=== PATIENT | female | born 1955 | race Caucasian/White ===

== ENCOUNTER 2024-03-09 01:46 | Outpatient (CLI) | payer MEDICARE, MEDICAID, SELFPAY ==
--- NOTE | 2024-03-09 | DI.MRI_ITS ---
Exam(s) MR BRAIN WO EXAM: MR BRAIN WO CLINICAL HISTORY: Cognitive decline for 60 days TECHNIQUE: Multiplanar multisequence MRI of the brain was performed. COMPARISON: No exams were available for comparison FINDINGS: CEREBRAL PARENCHYMA: There is no evidence of intracranial hemorrhage, mass effect, or shift of midline structures. There are no extra-axial fluid collections. Size of the lateral ventricles is slightly prominent as is siz e of the 3rd ventricle. However, appears commensurate with the size of the overlying cortical sulci. There is bifrontal atrophy also noted. There is no significant focal signal abnormality in the cerebellar hemispheres nor within the staci, m idbrain, and thalami. There few mild foci of FLAIR bright signal abnormality in the periventricular white matter, these not associated with hemorrhage, surrounding edema, nor restricted diffusion undo WI to suggest acute isc hemic events. There is no significant focal signal abnormality evident on diffusion imaging to suggest acute ischem ic event. SWI: No evidence of microhemorrhages in the brain. 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 FLOW VOIDS: The expected flow void are noted. No evidence of obvious aneurysm nor obvious vascular ma lformation. PARANASAL SINUSES: The visualized paranasal sinuses appear unremarkable. No obvious finding ORBITS: No obvious findings. OTHER: There appears to be a buffalo hump-type fat pad in the back of the neck. 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 IMPRESSION: There is symmetric involutional change as described above. Mild ventriculomegaly. Correlation with any clinical signs of normal pressure hydrocephalus recommended (dementia, incontinence, gait disturb ance). Sub sequelae of chronic small vessel disease as described above but no evidence of acute territorial nor lacunar infarct evident. Although the sella turcica is difficult to assess because of motion artifact, there appears to be an element of empty sella syndrome. DATA REPOSITORY:
== END 2024-03-09 02:06 ==
PROVIDERS: Visit Provider Nurse Practitioner
DX: G93.89 Other specified disorders of brain (principal)
CPT/HCPCS: 70551